=== PATIENT | male | born 1990 | race Caucasian/White ===

== ENCOUNTER 2020-06-15 20:44 | Emergency (ER) | payer OTHER ==
--- NOTE | 2020-06-15 21:05 | ED Physician Documentation ---
PD HPI ABD PAIN - Stated complaint Stated Complaint: ABX PX - Chief complaint Chief Complaint: Abd Pain - History obtained from History obtained from: Patient - History of Present Illness Timing - onset: How many weeks ago (2) Timing - duration: Weeks (2) Timing - details: Intermittant Pain level now: 8 Quality: Pain Location: RLQ Radiation: Other (epigastrium) Improved by: Other (nothing) Worsened by: Moving, Palpation Associated symptoms: No: Fever, Nausea, Vomiting, Diarrhea, Constipation, Chest pain Similar symptoms before: Has not had sx before Recently seen: Not recently seen Review of Systems Constitutional: denies: Fever, Chills, Sweats Cardiac: reports: Reviewed and negative Respiratory: reports: Reviewed and negative GI: reports: Abdominal Pain. denies: Abdominal Swelling, Nausea, Vomiting, C onstipation, Diarrhea : denies: Dysuria, Frequency, Hematuria Skin: denies: Rash Musculoskeletal: denies: Back pain PD PAST MEDICAL HISTORY - Past Medical History Past Medical History: No Cardiovascular: None Respiratory: None Neuro: None Endocrine/Autoimmune: None GI: None : None HEENT: None Psych: None Musculoskeletal: None Derm: None - Past Surgical History Past Surgical History: Yes Ortho: Other HEENT: Tonsil/Adenoidectomy - Present Medications Home Medications: Ambulatory Orders Medication Instructions Recorded Confirmed Ciprofloxacin HCl [Cipro] 500 mg PO BID #20 tablet 06/16/20 metroNIDAZOLE [Flagyl] 500 mg PO BID #20 tablet 06/16/20 - Allergies Allergies/Adverse Reactions: Allergies Allergy/AdvReac Type Severity Reaction Status Date / Time No Known Drug Allergies Allergy Verified 06/15/20 20:58 - Social History Does the pt smoke?: No Smoking Status: Never smoker Does the pt drink ETOH?: No Does the pt have substance abuse?: No - Immunizations Immunizations are current?: Yes - POLST Patient has POLST: No PD ED PE NORMAL - Vitals Vital signs reviewed: Yes - General General: Alert and oriented X 3, No acute distress, Well developed/nourished - Neck Neck: Supple, no meningeal sign - Cardiac Cardiac: RRR, No murmur, No gallop, No rub - Respiratory Respiratory: No respiratory distress, Clear bilaterally - Abdomen Abdomen: Soft, Non distended - Derm Derm: Normal color, Warm and dry PD ED PE EXPANDED - Abdomen Abdomen: Tender to palpation, RLQ. No: Rebound, Guarding, Mass (nontender right inguinal canal, no masses right inguinal canal including w/ valsalva) Results - Vitals Vitals: Vital Signs - 24 hr 06/15/20 06/15/20 06/15/20 20:56 21:05 22:30 Temperature 36.7 C Heart Rate 69 56 L Respiratory 16 16 16 Rate Blood Pressure 126/59 L 118/70 O2 Saturation 100 99 06/15/20 06/16/20 23:30 01:11 Temperature Heart Rate 58 L 63 Respiratory 16 18 Rate Blood Pressure 116/68 127/78 O2 Saturation 98 100 Oxygen O2 Source Room air - Labs Labs: Laboratory Tests 06/15/20 06/15/20 06/15/20 21:00 21:15 21:15 WBC 10.7 RBC 4.30 L Hgb 8.3 L Hct 28.6 L MCV 66.5 L MCH 19.3 L MCHC 29.0 L RDW 16.1 H Plt Count 420 MPV 9.5 Neut # (Auto) 7.7 H Lymph # (Auto) 2.1 [place] # (Auto) 0.6 Eos # (Auto) 0.2 Baso # (Auto) 0.1 Absolute Nucleated RBC 0.00 Nucleated RBC % 0.0 Manual Slide Review Indicated WBC Morphology NORMAL APPEARANCE Platelet Estimate NORMAL (130-450,000) Platelet Morphology NORMAL APPEARANCE RBC Morph Micro Appear 2+ MICROCYTOSIS Sodium 136 Potassium 3.6 Chloride 100 L Carbon Dioxide 26 Anion Gap 10.0 BUN 11 Creatinine 1.0 Estimated GFR (MDRD) 88 L Glucose 110 H Calcium 9.2 Total Bilirubin 0.8 AST 17 ALT 12 Alkaline Phosphatase 67 Total Protein 7.6 Albumin 3.7 Globulin 3.9 Albumin/Globulin Ratio 0.9 L Lipase 44 Urine Color YELLOW Urine Clarity CLEAR Urine pH 5.5 Ur Specific [place] <=1.005 Urine Protein NEGATIVE Urine Glucose (UA) NEGATIVE Urine Ketones NEGATIVE Urine Occult Blood NEGATIVE Urine Nitrite NEGATIVE Urine Bilirubin NEGATIVE Urine Urobilinogen 0.2 (NORMAL) Ur Leukocyte Esterase NEGATIVE Ur Microscopic Review NOT INDICATED Urine Culture Comments NOT INDICATED - Rads (name of study) CT A/P Radiology: Prelim report reviewed, See rad report PD MEDICAL DECISION MAKING - ED course Complexity details: reviewed results, re-evaluated patient, considered differential, d/w patient ED course: D/W Dr. Correa (center consultant surgery); recommends cipro and flagyl and outpatient f/u, as HPI and lab/CT results are most s/o IBD and not appendicitis. Patient has been tolerating PO without difficulty (albeit decreased appetite), is afebrile, has normal WBC, and declining pain medication. I then d/w Dr. Puga (GI at [facility]), agrees patient is appropriate for d/c, will need GI f/u. I discussed these recommendations with the patient and he is comfortable with this plan, will return if worse in any way and he reassures me that he will actively pursue follow up in outpatient setting. Departure - Departure Disposition: 01 Home, Self Care Clinical Impression: Ileitis, terminal Condition: Good Instructions: ED Inflam Bowel Disease Crohn Prescriptions: Ciprofloxacin HCl [Cipro] 500 mg PO BID #20 tablet metroNIDAZOLE [Flagyl] 500 mg PO BID #20 tablet Comments: AVOID anti-inflammatory medications (such as ibuprofen, naproxen). You need to follow up with a debubblizer as soon as can be arranged. Contact your primary care provider or insurance carrier to obtain a referral. Discharge Date/Time: 06/16/20 01:16
[2020-06-15 21:06] LABS: BILIRUBIN,URINE NEGATIVE (NEGATIVE); GLUCOSE, URINE (UA) NEGATIVE (NEGATIVE); KETONES,URINE (UA) NEGATIVE (NEGATIVE); LEUKOCYTE ESTERASE, URINE NEGATIVE (NEGATIVE); NITRITE,URINE NEGATIVE (NEGATIVE); OCCULT BLOOD,URINE NEGATIVE (NEGATIVE); PH,URINE 5.5 PH (5.0-7.5); PROTEIN,URINE NEGATIVE (NEGATIVE); UROBILINOGEN,URINE 0.2 (NORMAL) E.U./dL (NORMAL)
[2020-06-15 21:11] LABS: CLARITY,URINE CLEAR (CLEAR)
[2020-06-15 21:26] LABS: BASOPHILS # (AUTO) 0.1 10^3/uL (0.0-0.1); BASOPHILS % (AUTO) 0.5 %; EOSINOPHILS # (AUTO) 0.2 10^3/uL (0.0-0.7); EOSINOPHILS % (AUTO) 1.8 %; HGB - HEMOGLOBIN 8.3 g/dL (14.0-18.0); LYMPHOCYTES # (AUTO) 2.1 10^3/uL (1.5-3.5); LYMPHOCYTES % (AUTO) 19.6 %; MEAN CORPUSCULAR HEMOGLOBIN 19.3 pg (27.0-31.0); MEAN CORPUSCULAR VOLUME 66.5 fL (80.0-94.0); MEAN PLATELET VOLUME 9.5 fL (7.4-11.4); MONOCYTES # (AUTO) 0.6 10^3/uL (0.0-1.0); MONOCYTES % (AUTO) 5.6 %; NEUTROPHILS # (AUTO) 7.7 10^3/uL (1.5-6.6); NEUTROPHILS % (AUTO) 72.1 %; PLT - PLATELET COUNT 420 10^3/uL (130-450); RED CELL DISTRIBUTION WIDTH 16.1 % (12.0-15.0); WHITE BLOOD COUNT 10.7 x10^3/uL (4.8-10.8)
[2020-06-15] MEDS ORDERED: IOVERSOL 320 100 ML VIAL IVP ONE ×2 (21:30→22:07)
[2020-06-15 21:38] LABS: ALBUMIN 3.7 g/dL (3.2-5.5); ALBUMIN/GLOBULIN RATIO 0.9 (1.0-2.2); BILIRUBIN,TOTAL 0.8 mg/dL (0.2-1.0); CALCIUM 9.2 mg/dL (8.5-10.3); TOTAL PROTEIN 7.6 g/dL (6.7-8.2)
[2020-06-15 21:39] LABS: PLATELET ESTIMATE, MANUAL NORMAL (130-450,000) (NORMAL); PLATELET MORPHOLOGY NORMAL APPEARANCE (NORMAL)
[2020-06-16] MEDS ORDERED: CIPROFLOXACIN 250 MG TABLET PO STA (00:54)
[2020-06-16] MEDS ORDERED: metroNIDAZOLE 250 MG TABLET PO STA (00:54)
[2020-06-16 01:14] VITALS: BP 127/78
--- NOTE | 2020-06-16 08:51 | CT Report ---
PROCEDURE: Abdomen/Pelvis W INDICATIONS: RLQ pain, tenderness CONTRAST: IV CONTRAST: Optiray 320 ml: 100 PO CONTRAST: *NO PO CONTRAST TECHNIQUE: After the administration of oral and intravenous contrast, 5 mm thick sections acquired from the diap hragms to the symphysis. 5 mm thick coronal and sagittal reformats were acquired. For radiation dos e reduction, the following was used: automated exposure control, adjustment of mA and/or kV accordin g to patient size. COMPARISON: None. FINDINGS: Image quality: Excellent. ABDOMEN: Lung bases: Lung bases are clear. Heart size is normal. Solid organs: Liver and spleen are normal in size and enhancement. Gallbladder is within normal sadler its Biliary system is non dilated. Pancreas enhances normally. No adrenal nodules. Kidneys demons trate normal size and enhancement, without hydronephrosis. There is a nonobstructing 2 mm calculus w ithin the inferior pole right kidney anteriorly. Peritoneum and bowel: The stomach is within normal limits. Proximal and mid small bowel is nondistend ed. There is moderate dilatation of the distal ileum just proximal to the terminal ileum. There is se nayan thickening of the terminal ileum. There is moderate fat stranding surrounding the terminal ileum . The appendix is mildly distended measuring 8 mm, and is immediately posterior to the second termina l ileum. Colon is nondistended. Trace free fluid within the pelvis. No pneumoperitoneum. Nodes and vessels: No retroperitoneal or mesenteric adenopathy by size criteria. Mildly prominent suarez bcentimeter lymph nodes adjacent to the ileocecal junction. Aorta and inferior vena cava are normal in size. Miscellaneous: No ventral hernias. PELVIS: Genitourinary: Bladder wall thickness is normal. Miscellaneous: No inguinal hernias or adenopathy. Bones: No suspicious bony lesions. No vertebral body compression fractures. IMPRESSION: 1. Severe terminal ileitis. Differential considerations include inflammatory bowel disease versus inf ectious etiologies as most likely considerations. There is associated dilatation of the distal ileum. 2. Secondary appendicitis. 3. Nonobstructing right renal calculus. 4. Trace free fluid in the pelvis. 5. Concordant with preliminary interpretation. Reviewed by: Gaudencio St MD on 06/16/2020 8:49 AM PDT Approved by: Gaudencio St MD on 06/16/2020 8:49 AM PDT Station ID: [id number]
== END 2020-06-16 01:16 | disposition home or self-care (01) ==
LOC: ED 20:44
DX: K50.00 Crohn's disease of small intestine without complications (principal)
CPT/HCPCS: 36415; 74177; 80053; 81003; 83690; 85025; 99284; A9270; Q9967; 81001; 87086

== ENCOUNTER 2021-08-13 16:22 | Emergency (ER) | payer BC, OTHER ==
[2021-08-13] MEDS ORDERED: HYDROmorphone 1 MG/ML CARPUJECT IVP STA (16:57)
--- NOTE | 2021-08-13 16:58 | ED Physician Documentation ---
History of Present Illness - Stated complaint Stated Complaint: MALE - Chief complaint Chief Complaint: General - History obtained from History obtained from: Patient - Additonal information Additional information: 31-year-old gentleman with Crohn's disease and frequent hemorrhoids presents with 9 to 10 days of what he thinks is a hemorrhoidal flare. Unresponsive to [id number] remedies. No fevers. No recent diarrhea or blood in the stool. Review of Systems Ten Systems: 10 systems reviewed and negative Constitutional: reports: Reviewed and negative Eyes: reports: Reviewed and negative Ears: reports: Reviewed and negative PD PAST MEDICAL HISTORY - Past Medical History Cardiovascular: None Respiratory: None Neuro: None Endocrine/Autoimmune: None GI: None : None HEENT: None Psych: None Musculoskeletal: None Derm: None - Past Surgical History Past Surgical History: Yes Ortho: Other HEENT: Tonsil/Adenoidectomy - Present Medications Home Medications: Ambulatory Orders Medication Instructions Recorded Confirmed Amox/Clav 875/125 [Augmentin] 1 each PO Q12H #20 tablet 08/13/21 HYDROcod/ACETAM 5/325 [[place] 5/325] 1 - 2 tab PO Q6H PRN #15 tablet 08/13/21 - Allergies Allergies/Adverse Reactions: Allergies Allergy/AdvReac Type Severity Reaction Status Date / Time No Known Drug Allergies Allergy Verified 08/13/21 16:26 - Social History Does the pt smoke?: No Smoking Status: Never smoker Does the pt drink ETOH?: No Does the pt have substance abuse?: No - Immunizations Immunizations are current?: Yes - POLST Patient has POLST: No PD ED PE NORMAL - Vitals Vital signs reviewed: Yes - General General: Alert and oriented X 3 - Abdomen Abdomen: Normal bowel sounds, Soft, Non tender - Rectal Rectal: Other (He does have some hemorrhoids on the right but under there is a very large perirectal abscess) - Neuro Neuro: Alert and oriented X 3, Normal speech Results - Vitals Vitals: Vital Signs - 24 hr 08/13/21 08/13/21 08/13/21 16:27 17:35 17:36 Temperature 37.2 C Heart Rate 98 77 75 Respiratory 18 16 16 Rate Blood Pressure 141/82 H 118/71 O2 Saturation 97 98 08/13/21 08/13/21 08/13/21 17:38 17:40 17:43 Temperature Heart Rate 75 62 75 Respiratory 22 26 H 24 Rate Blood Pressure 126/91 H 110/80 O2 Saturation 100 100 100 08/13/21 08/13/21 17:53 17:58 Temperature Heart Rate 70 68 Respiratory 18 11 L Rate Blood Pressure 122/67 117/65 O2 Saturation 99 98 Oxygen O2 Source Room air - Labs Labs: Laboratory Tests 08/13/21 08/13/21 17:05 17:05 WBC 12.2 H RBC 5.10 Hgb 9.8 L Hct 35.0 L MCV 68.6 L MCH 19.2 L MCHC 28.0 L RDW 15.9 H Plt Count 383 MPV 9.8 Manual Slide Review Indicated Sodium 138 Potassium 3.9 Chloride 98 L Carbon Dioxide 27 Anion Gap 13.0 BUN 19 Creatinine 0.8 Estimated GFR (MDRD) 114 Glucose 112 H Calcium 9.3 Total Bilirubin 0.9 AST 14 ALT 11 Alkaline Phosphatase 72 Total Protein 8.2 Albumin 4.0 Globulin 4.2 Albumin/Globulin Ratio 1.0 Lipase 31 Procedures - Procedural sedation Sedation prep: Informed consent, Time out completed, Last meal (12p), PE performed, ASA 2 - mild disease Sedation Medications: propofol (70 then 40 then 40 mg IVP) Mallampati classification: I Patient status during sedation: Responds to tactile Sedation recovery: Recovered uneventfully, Slow recovery Time in sedation (Minutes): 12 PD MEDICAL DECISION MAKING - ED course ED course: 31-year-old gentleman with history of Crohn's presents with large perirectal abscess. Dr. Correa came in and saw the patient at the bedside. I sedated the patient for a incision and drainage that the surgeon performed of the rectal abscess, see his note. Departure - Departure Disposition: 01 Home, Self Care Clinical Impression: Rectal abscess Condition: Good Record reviewed to determine appropriate education?: Yes Instructions: ED Fistula Angelika Anal Follow-Up: Humphrey Correa MD [Provider Admit Priv/Credential] - Prescriptions: Amox/Clav 875/125 [Augmentin] 1 each PO Q12H #20 tablet HYDROcod/ACETAM 5/325 [[place] 5/325] 1 - 2 tab PO Q6H PRN #15 tablet PRN Reason: Pain Comments: Prescription sent electronically to [facility] in [place]. You can soak it tomorrow and then remove the packing. After that you will want to keep some absorbent material inside of your underpants as there will be drainage. Return if worsening. Otherwise to follow-up with the surgeon in 2 weeks, call his office tomorrow. His numbers on this form. I am prescribing a short course of narcotic pain medication for you. These are potentially dangerous and addictive medications that should be used carefully. These medications may constipate you. Take an hovb-pob-xsqbxga stool softener (docusate) twice daily with plenty of water while taking these medications. If you go 24 hours without a bowel movement, take uyfg-tjk-kebricx miralax, per package instructions. Do not drink or drive while taking these medications. If you received narcotic or sedating medications while in the emergency department, do not drive for 24 hours. Store this medication in a safe, secure place and out of reach of children. It is a violation of federal law to give or sell this medication to another person or to use in a manner other than prescribed. The ED will not refill narcotic prescriptions, including prescriptions lost or stolen. To dispose of unwanted medications: 1. [facility] at [address] in [place] has a medication drop box. They accept prescription medications (in pill form) Thursday through Thursday 9:00 a.m. to 5:00 p.m. 2. [facility] [employer] accepts prescription medications (in pill form only) for disposal year round. Call for more information. 3. Contact the [facility] for the next [facility] sponsored prescription drug collection event. , [phone], or [phone]; Note that many narcotic pain relievers also contain Tylenol/acetaminophen. Please ensure that your total dose of acetaminophen from all sources does not exceed 3 g (3000 mg) per day.
[2021-08-13 17:09] LABS: BASOPHILS % (AUTO) 0.3 %; EOSINOPHILS % (AUTO) 0.3 %; HGB - HEMOGLOBIN 9.8 g/dL (14.0-18.0); LYMPHOCYTES # (AUTO) 1.1 10^3/uL (1.5-3.5); LYMPHOCYTES % (AUTO) 8.7 %; MEAN CORPUSCULAR HEMOGLOBIN 19.2 pg (27.0-31.0); MEAN CORPUSCULAR VOLUME 68.6 fL (80.0-94.0); MEAN PLATELET VOLUME 9.8 fL (7.4-11.4); MONOCYTES # (AUTO) 0.7 10^3/uL (0.0-1.0); MONOCYTES % (AUTO) 5.8 %; NEUTROPHILS # (AUTO) 10.3 10^3/uL (1.5-6.6); NEUTROPHILS % (AUTO) 84.6 %; PLT - PLATELET COUNT 383 10^3/uL (130-450); RED CELL DISTRIBUTION WIDTH 15.9 % (12.0-15.0); WHITE BLOOD COUNT 12.2 x10^3/uL (4.8-10.8)
[2021-08-13 17:10] LABS: SLIDE REVIEW? Indicated
[2021-08-13 17:22] LABS: BILIRUBIN,TOTAL 0.9 mg/dL (0.2-1.0); CALCIUM 9.3 mg/dL (8.5-10.3); CREATININE 0.8 mg/dL (0.6-1.2); POTASSIUM 3.9 mmol/L (3.5-5.0); TOTAL PROTEIN 8.2 g/dL (6.7-8.2)
[2021-08-13] MEDS ORDERED: PROPOFOL 200 MG/20 ML VIAL IVP STA ×2 (17:24→17:44)
[2021-08-13] MEDS ORDERED: LIDOCAINE 1%-EPI 1:100000 20 ML MDV SUBQ STA (17:24)
[2021-08-13] MEDS ORDERED: BUPIVACAINE 0.5%-EPI 1:200000 PF 30 ML VIAL SUBQ ONE (17:24)
[2021-08-13] MEDS ORDERED: BUPIVACAINE 0.25% PF 30 ML VIAL ONE (17:34)
--- NOTE | 2021-08-13 17:49 | CONSULTATION NOTE ---
Referring Provider Consult Date: 08/13/21 Chief Complaint - Chief Complaint Chief Complaint: perianal pain x 10 days History of Present Illness - History Obtained From Records Reviewed: yes History obtained from: pt Exam Limitations: none - History of Present Illness HPI Comment/Other: 31 year old with history of crohns and hemorrhoid type problems. For the last 10 days he thought he was having more hemorrhoid troubles with pain. He was seen and evaluated in the ED. Dx perianal abscess. History - Past Medical History Cardiovascular: reports: None Respiratory: reports: None Neuro: reports: None Endocrine/Autoimmune: reports: None GI: reports: None : reports: None HEENT: reports: None Psych: reports: None Musculoskeletal: reports: None Derm: reports: None MRSA Hx?: No Other Past Medical History: Hx hemrroids - Past Surgical History Ortho: reports: Other HEENT: reports: Tonsil/Adenoidectomy - POLST Patient has POLST: No Meds/Allgy - Home Medications Home Medications: Ambulatory Orders Medication Instructions Recorded Confirmed Amox/Clav 875/125 [Augmentin] 1 each PO Q12H #20 tablet 08/13/21 HYDROcod/ACETAM 5/325 [[place] 5/325] 1 - 2 tab PO Q6H PRN #15 tablet 08/13/21 - Allergies Allergies/Adverse Reactions: Allergies Allergy/AdvReac Type Severity Reaction Status Date / Time No Known Drug Allergies Allergy Verified 08/13/21 16:26 Review of Systems - Constitutional Constitutional: reports: Fever, Malaise (10 pt ros as above otherwise unremarkable) Exam - Vital Signs Reviewed Vital Signs: Yes Vital Signs: Vital Signs x48h Temp Pulse Resp BP Pulse Ox 08/13/21 17:43 75 24 110/80 100 08/13/21 17:40 62 26 H 126/91 H 100 08/13/21 17:38 75 22 100 08/13/21 17:36 75 16 118/71 98 08/13/21 16:27 37.2 C 98 18 141/82 H 97 - Physical Exam General Appearance: positive: No acute distress, Alert Eyes Bilateral: positive: PERRL, EOMI, No scleral icterus ENT: positive: No signs of dehydration Neck: positive: No JVD Respiratory: positive: No respiratory distress Abdomen: positive: Non-tender, No distention, Other (thin) Rectal: positive: Other (10:00 3 to 4 cm perianal abscess with minimal to no cellulitis and induration. perianal skin tags present. no prolapsed internal hemorrhoids or significant external hemorrhoids.) Conclusion/Plan - Problem List (1) Rectal abscess Conclusion/Plan: Plan I and D perianal abscess. Parq held and verbal consent obtained. I and D performed. well tolerated. Follow up in surgery office in 2 weeks and prn Remove dressing tomorrow and change as needed [phone] - Lab Results Fish Bones: 08/13/21 17:05 08/13/21 17:05
--- NOTE | 2021-08-13 17:56 | OPERATIVE REPORT ---
Operative Report - General Procedure Date: 08/13/21 Planned Procedure: I and D perianal abscess Pre-Op Diagnosis: perianal abscess Procedure Performed: I and D perianal abscess Post Op Diagnosis: perianal abscess 10:00 - Procedure Note Primary Surgeon: adri najera Anesthesia Provider: Dr roel BOOKER Anesthesia Technique: Local, MAC Pathology: none Estimated Blood Loss (mL): 1 Drain/Tube Type: Other (none) Indications: painful perianal abscess Findings: 3 to 4 cm abscess with minimal cellulitis. no induration Complications: none - Other Other Information/Narrative: The patient was properly identified in the emergency department room. Procedure of incision and drainage of perianal abscess was explained. Alternatives and risks were discussed. All questions answered. Verbal consent was obtained for incision and drainage of abscess. Anesthesia was administered by Dr. Ward, emergency department Betadine was used. Lidocaine and Marcaine with epinephrine was used. A 2 cm incision was made completely draining the abscess. He tolerated the procedure well. Loose packing followed by dry gauze was placed. He was much improved and in good condition.
[2021-08-13] MEDS ORDERED: BUPIVACAINE 0.25% PF 30 ML VIAL SUBQ STA (18:03)
[2021-08-13 18:05] LABS: PLATELET ESTIMATE, MANUAL NORMAL (130-450,000) (NORMAL); PLATELET MORPHOLOGY NORMAL APPEARANCE (NORMAL)
[2021-08-13 18:38] VITALS: BP 117/76
== END 2021-08-13 18:43 | disposition home or self-care (01) ==
LOC: ED 16:22
DX: K50.914 Crohn's disease, unspecified, with abscess (principal)
CPT/HCPCS: 36415; 46050; 80053; 83690; 85025; 96374; 99156; 99283; 99285; J1170; 94770

== ENCOUNTER 2021-08-18 09:58 | Emergency (ER) | payer BC ==
[2021-08-18 11:27] LABS: BASOPHILS % (AUTO) 0.5 %; EOSINOPHILS # (AUTO) 0.1 10^3/uL (0.0-0.7); EOSINOPHILS % (AUTO) 1.3 %; HCT - HEMATOCRIT 35.2 % (42.0-52.0); HGB - HEMOGLOBIN 9.8 g/dL (14.0-18.0); LYMPHOCYTES # (AUTO) 0.9 10^3/uL (1.5-3.5); LYMPHOCYTES % (AUTO) 11.4 %; MEAN CORPUSCULAR HEMOGLOBIN 19.4 pg (27.0-31.0); MEAN CORPUSCULAR HGB CONC 27.8 g/dL (32.0-36.0); MEAN CORPUSCULAR VOLUME 69.8 fL (80.0-94.0); MEAN PLATELET VOLUME 9.8 fL (7.4-11.4); MONOCYTES # (AUTO) 0.3 10^3/uL (0.0-1.0); MONOCYTES % (AUTO) 4.1 %; NEUTROPHILS # (AUTO) 6.5 10^3/uL (1.5-6.6); NEUTROPHILS % (AUTO) 82.6 %; PLT - PLATELET COUNT 394 10^3/uL (130-450); RED BLOOD COUNT 5.04 10^6/uL (4.70-6.10); RED CELL DISTRIBUTION WIDTH 16.1 % (12.0-15.0); WHITE BLOOD COUNT 7.8 x10^3/uL (4.8-10.8)
[2021-08-18 11:29] LABS: SLIDE REVIEW? Indicated
[2021-08-18 11:41] LABS: ALBUMIN 3.7 g/dL (3.2-5.5); BILIRUBIN,TOTAL 0.3 mg/dL (0.2-1.0); CALCIUM 9.2 mg/dL (8.5-10.3); CREATININE 0.7 mg/dL (0.6-1.2); TOTAL PROTEIN 7.4 g/dL (6.7-8.2)
[2021-08-18 11:44] LABS: GLUCOSE, URINE (UA) NEGATIVE (NEGATIVE); KETONES,URINE (UA) TRACE mg/dL (NEGATIVE); LEUKOCYTE ESTERASE, URINE NEGATIVE (NEGATIVE); NITRITE,URINE NEGATIVE (NEGATIVE); OCCULT BLOOD,URINE NEGATIVE (NEGATIVE); PROTEIN,URINE NEGATIVE (NEGATIVE); UROBILINOGEN,URINE 0.2 (NORMAL) E.U./dL (NORMAL)
[2021-08-18 11:49] LABS: RBC MORPHOLOGY (MULTIPLE) 2+ MICROCYTOSIS (NORMAL)
[2021-08-18 11:51] LABS: CLARITY,URINE CLEAR (CLEAR)
[2021-08-18 11:55] LABS: BILIRUBIN,URINE NEGATIVE (NEGATIVE); ICTOTEST,URINE NEGATIVE
--- NOTE | 2021-08-18 11:59 | ED Physician Documentation ---
PD HPI ABD PAIN - Stated complaint Stated Complaint: BLOOD IN URINE - Chief complaint Chief Complaint: Abd Pain - History obtained from History obtained from: Patient - Additional information Additional information: 31-year-old gentleman with Crohn's disease was seen by me about a week ago for a perirectal abscess which was incised and drained by the surgeon. He is back on his Pentasa. He continues to have weight loss and drainage from the abscess but today noted light pink hematuria and suprapubic discomfort. No frequency or urgency. Review of Systems Constitutional: reports: Reviewed and negative Eyes: reports: Reviewed and negative Ears: reports: Reviewed and negative Nose: reports: Reviewed and negative Throat: reports: Reviewed and negative Cardiac: reports: Reviewed and negative Respiratory: reports: Reviewed and negative PD PAST MEDICAL HISTORY - Past Medical History Cardiovascular: None Respiratory: None Neuro: None Endocrine/Autoimmune: None GI: Crohn's disease : None HEENT: None Psych: None Musculoskeletal: None Derm: None Other Past Medical History: Rectal abscess, anal fissure - Past Surgical History Past Surgical History: Yes Ortho: Other HEENT: Tonsil/Adenoidectomy - Present Medications Home Medications: Ambulatory Orders Medication Instructions Recorded Confirmed Amox/Clav 875/125 [Augmentin] 1 each PO Q12H #20 tablet 08/13/21 HYDROcod/ACETAM 5/325 [[place] 5/325] 1 - 2 tab PO Q6H PRN #15 tablet 08/13/21 - Allergies Allergies/Adverse Reactions: Allergies Allergy/AdvReac Type Severity Reaction Status Date / Time No Known Drug Allergies Allergy Verified 08/18/21 10:22 - Social History Does the pt smoke?: No Smoking Status: Never smoker Does the pt drink ETOH?: No Does the pt have substance abuse?: No - Immunizations Immunizations are current?: Yes - POLST Patient has POLST: No PD ED PE NORMAL - Vitals Vital signs reviewed: Yes - General General: Alert and oriented X 3, No acute distress - HEENT HEENT: PERRL, EOMI - Neck Neck: Supple, no meningeal sign, No bony TTP - Cardiac Cardiac: RRR, No murmur - Respiratory Respiratory: No respiratory distress, Clear bilaterally - Abdomen Abdomen: Normal bowel sounds, Soft, Non tender - Rectal Rectal: Other (Actively draining abscess with still open tract on the right gluteal crease without cellulitis now.) - Back Back: No CVA TTP, No spinal TTP - Derm Derm: Normal color, Warm and dry - Extremities Extremities: No edema, No calf tenderness / cord - Neuro Neuro: Alert and oriented X 3, Normal speech Results - Vitals Vitals: Vital Signs - 24 hr 08/18/21 08/18/21 10:19 12:45 Temperature 36.1 C L 36.4 C L Heart Rate 126 H 59 L Respiratory 16 16 Rate Blood Pressure 116/84 H 122/81 H O2 Saturation 100 100 Oxygen O2 Source Room air - Labs Labs: Laboratory Tests 08/18/21 08/18/21 08/18/21 10:26 11:20 11:20 WBC 7.8 RBC 5.04 Hgb 9.8 L Hct 35.2 L MCV 69.8 L MCH 19.4 L MCHC 27.8 L RDW 16.1 H Plt Count 394 MPV 9.8 Neut # (Auto) 6.5 Lymph # (Auto) 0.9 L [place] # (Auto) 0.3 Eos # (Auto) 0.1 Baso # (Auto) 0.0 Absolute Nucleated RBC 0.00 Nucleated RBC % 0.0 Manual Slide Review Indicated RBC Morph Micro Appear 2+ MICROCYTOSIS Sodium 138 Potassium 4.0 Chloride 101 Carbon Dioxide 27 Anion Gap 10.0 BUN 12 Creatinine 0.7 Estimated GFR (MDRD) 132 Glucose 102 H Calcium 9.2 Total Bilirubin 0.3 AST 26 ALT 20 Alkaline Phosphatase 60 Total Protein 7.4 Albumin 3.7 Globulin 3.7 Albumin/Globulin Ratio 1.0 Lipase 36 Urine Color DARK YELLOW Urine Clarity CLEAR Urine pH 5.0 Ur Specific [place] 1.025 Urine Protein NEGATIVE Urine Glucose (UA) NEGATIVE Urine Ketones TRACE Urine Occult Blood NEGATIVE Urine Nitrite NEGATIVE Urine Bilirubin NEGATIVE Urine Urobilinogen 0.2 (NORMAL) Ur Leukocyte Esterase NEGATIVE Ur Microscopic Review NOT INDICATED Urine Culture Comments NOT INDICATED PD MEDICAL DECISION MAKING - ED course ED course: 31-year-old gentleman presents with chief complaints of visible hematuria in the setting of active Crohn's disease. He has an appoint with his GI tomorrow but does not appear in extremis and has no other urinary symptoms. After his urine was resulted without any evidence of hematuria further questioning was done culminating in the discovery that his had made him a beet smoothie yesterday which was probably causative of his acute symptomatology. I offered to go ahead and do the CT with double contrast that I had previously ordered anyway and he declined. He has an appoint with his GI tomorrow which she will keep. Departure - Departure Disposition: 01 Home, Self Care Clinical Impression: Red urine due to beet ingestion Acute Crohn's disease Qualifiers: Digestive disease complication type: unspecified complication Qualified Code(s): K50.919 - Crohn's disease, unspecified, with unspecified complications Condition: Good Record reviewed to determine appropriate education?: Yes Instructions: ED Inflam Bowel Disease Crohn Comments: Follow-up with your GI tomorrow as scheduled. Return for new or worsening symptoms. Discharge Date/Time: 08/18/21 12:46
[2021-08-18] MEDS ORDERED: IOPAMIDOL-300 100 ML VIAL ONE (12:05)
[2021-08-18] MEDS ORDERED: IOVERSOL 320 50 ML VIAL ONE (12:06)
[2021-08-18 12:45] VITALS: BP 122/81
== END 2021-08-18 12:46 | disposition home or self-care (01) ==
LOC: ED 09:58
DX: K50.90 Crohn's disease, unspecified, without complications (principal)
CPT/HCPCS: 36415; 80053; 81001; 81003; 83690; 85025; 87086; 99283

== ENCOUNTER 2021-10-28 11:46 | Outpatient (CLI) | payer BC ==
[2021-10-28] MEDS ORDERED: IOVERSOL 320 50 ML VIAL ONE (11:56)
[2021-10-28] MEDS ORDERED: IOVERSOL 320 100 ML VIAL IVP ONE ×2 (11:56→13:12)
[2021-10-28] MEDS ORDERED: IOVERSOL 320 50 ML VIAL PO ONE (13:12)
--- NOTE | 2021-10-28 16:10 | CT Report ---
PROCEDURE: Abdomen/Pelvis W INDICATIONS: CROHN'S DISEASE CONTRAST: IV CONTRAST: Optiray 320 ml: 100 PO CONTRAST: Optiray 320 ml50 TECHNIQUE: After the administration of IV and oral contrast, 5 mm thick sections acquired from the diaphragms to the symphysis. 5 mm thick coronal and sagittal reformats were acquired. For radiation dose reducti on, the following was used: automated exposure control, adjustment of mA and/or kV according to quintin ent size. COMPARISON: 06/15/2020. FINDINGS: Image quality: Excellent. ABDOMEN: Lung bases: Lung bases are clear. Heart size is normal. Solid organs: Liver is normal in size and enhancement. Splenomegaly is seen, no discrete splenic les ion is noted. Gallbladder is within normal limits. Biliary system is non dilated. Pancreas enhances normally. No adrenal nodules. Kidneys demonstrate normal size and enhancement, without hydronephro sis. Nonobstructing right renal calculus is again seen and unchanged from prior study. Peritoneum and bowel: There is no evidence of bowel obstruction. Marked wall thickening involving ter mariano ileum in right lower quadrant is seen with narrowing of the lumen and adjacent mesenteric fat s tranding. No other area of abnormal bowel wall thickening. No abscess collection. No free fluid of fr ee air. Nodes and vessels: No retroperitoneal or mesenteric adenopathy by size criteria. Small right lower q uadrant mesenteric lymph nodes are seen adjacent inflamed terminal ileum and ileocecal junction measu res up to 4 mm in short axis diameter series 3 image 55. Aorta and inferior vena cava are normal in s ize. Miscellaneous: No ventral hernias. PELVIS: Genitourinary: Bladder wall thickness is normal. Miscellaneous: No inguinal hernias or adenopathy. Bones: No suspicious bony lesions. No vertebral body compression fractures. IMPRESSION: 1. Severe terminal ileitis likely related to patient's known Crohn's disease. No abscess collection. No bowel obstruction. No free fluid of free air. 2. Subcentimeter lymph nodes seen in right lower quadrant mesentery likely represent reactive inflamm atory lymph nodes. 3. Stable tiny nonobstructing right renal calculi. No hydronephrosis. 4. Splenomegaly, no discrete splenic lesion. Reviewed by: Alexander Torres MD on 10/28/2021 4:09 PM PST Approved by: Alexander Torres MD on 10/28/2021 4:09 PM PST Station ID: [id number]
== END 2021-10-28 11:47 | disposition home or self-care (01) ==
LOC: DI 11:46
PROVIDERS: ATTEND Nurse Practitioner Family
DX: K50.90 Crohn's disease, unspecified, without complications (principal); K52.9 Noninfective gastroenteritis and colitis, unspecified; N20.0 Calculus of kidney; R16.1 Splenomegaly, not elsewhere classified
CPT/HCPCS: 74177; Q9967

== ENCOUNTER 2021-12-27 09:31 | Outpatient (CLI) | payer OTHER ==
[2021-12-27 09:44] LABS: BASOPHILS % (AUTO) 0.4 %; EOSINOPHILS # (AUTO) 0.1 10^3/uL (0.0-0.7); EOSINOPHILS % (AUTO) 1.5 %; HCT - HEMATOCRIT 41.5 % (42.0-52.0); HGB - HEMOGLOBIN 12.9 g/dL (14.0-18.0); LYMPHOCYTES # (AUTO) 1.7 10^3/uL (1.5-3.5); LYMPHOCYTES % (AUTO) 24.8 %; MEAN CORPUSCULAR HEMOGLOBIN 25.8 pg (27.0-31.0); MEAN CORPUSCULAR HGB CONC 31.1 g/dL (32.0-36.0); MEAN PLATELET VOLUME 10.6 fL (7.4-11.4); MONOCYTES # (AUTO) 0.5 10^3/uL (0.0-1.0); MONOCYTES % (AUTO) 6.7 %; NEUTROPHILS # (AUTO) 4.5 10^3/uL (1.5-6.6); NEUTROPHILS % (AUTO) 66.5 %; PLT - PLATELET COUNT 230 10^3/uL (130-450); RED CELL DISTRIBUTION WIDTH 15.9 % (12.0-15.0); WHITE BLOOD COUNT 6.8 x10^3/uL (4.8-10.8)
== END 2021-12-27 09:32 | disposition home or self-care (01) ==
LOC: LAB 09:31
PROVIDERS: ATTEND Internal Medicine Gastroenterology
DX: K50.013 Crohn's disease of small intestine with fistula (principal)
CPT/HCPCS: 36415; 85025

== ENCOUNTER 2022-01-03 09:42 | Outpatient (CLI) | payer OTHER ==
[2022-01-03 09:58] LABS: BASOPHILS % (AUTO) 0.3 %; EOSINOPHILS # (AUTO) 0.1 10^3/uL (0.0-0.7); EOSINOPHILS % (AUTO) 1.1 %; HCT - HEMATOCRIT 41.1 % (42.0-52.0); HGB - HEMOGLOBIN 12.9 g/dL (14.0-18.0); LYMPHOCYTES # (AUTO) 1.8 10^3/uL (1.5-3.5); LYMPHOCYTES % (AUTO) 19.4 %; MEAN CORPUSCULAR HEMOGLOBIN 26.4 pg (27.0-31.0); MEAN CORPUSCULAR HGB CONC 31.4 g/dL (32.0-36.0); MEAN CORPUSCULAR VOLUME 84.2 fL (80.0-94.0); MEAN PLATELET VOLUME 10.7 fL (7.4-11.4); MONOCYTES # (AUTO) 0.5 10^3/uL (0.0-1.0); MONOCYTES % (AUTO) 5.5 %; NEUTROPHILS # (AUTO) 6.7 10^3/uL (1.5-6.6); NEUTROPHILS % (AUTO) 73.5 %; PLT - PLATELET COUNT 247 10^3/uL (130-450); RED BLOOD COUNT 4.88 10^6/uL (4.70-6.10); RED CELL DISTRIBUTION WIDTH 15.9 % (12.0-15.0); WHITE BLOOD COUNT 9.1 x10^3/uL (4.8-10.8)
== END 2022-01-03 09:43 | disposition home or self-care (01) ==
LOC: LAB 09:42
PROVIDERS: ATTEND Internal Medicine Gastroenterology
DX: K50.013 Crohn's disease of small intestine with fistula (principal)
CPT/HCPCS: 36415; 85025

== ENCOUNTER 2022-01-10 09:46 | Outpatient (CLI) | payer OTHER ==
[2022-01-10 10:01] LABS: BASOPHILS % (AUTO) 0.4 %; EOSINOPHILS # (AUTO) 0.1 10^3/uL (0.0-0.7); EOSINOPHILS % (AUTO) 1.7 %; HCT - HEMATOCRIT 40.7 % (42.0-52.0); LYMPHOCYTES # (AUTO) 1.7 10^3/uL (1.5-3.5); LYMPHOCYTES % (AUTO) 20.9 %; MEAN CORPUSCULAR HEMOGLOBIN 26.7 pg (27.0-31.0); MEAN CORPUSCULAR HGB CONC 31.9 g/dL (32.0-36.0); MEAN CORPUSCULAR VOLUME 83.6 fL (80.0-94.0); MEAN PLATELET VOLUME 10.3 fL (7.4-11.4); MONOCYTES # (AUTO) 0.6 10^3/uL (0.0-1.0); MONOCYTES % (AUTO) 7.3 %; NEUTROPHILS # (AUTO) 5.6 10^3/uL (1.5-6.6); NEUTROPHILS % (AUTO) 69.3 %; PLT - PLATELET COUNT 252 10^3/uL (130-450); RED BLOOD COUNT 4.87 10^6/uL (4.70-6.10); RED CELL DISTRIBUTION WIDTH 15.9 % (12.0-15.0); WHITE BLOOD COUNT 8.1 x10^3/uL (4.8-10.8)
== END 2022-01-10 09:47 | disposition home or self-care (01) ==
LOC: LAB 09:46
PROVIDERS: ATTEND Internal Medicine Gastroenterology
DX: K50.013 Crohn's disease of small intestine with fistula (principal)
CPT/HCPCS: 36415; 85025

== ENCOUNTER 2022-01-20 07:42 | Outpatient (CLI) | payer OTHER ==
[2022-01-20 07:55] LABS: BASOPHILS % (AUTO) 0.5 %; EOSINOPHILS # (AUTO) 0.2 10^3/uL (0.0-0.7); EOSINOPHILS % (AUTO) 2.6 %; HCT - HEMATOCRIT 41.3 % (42.0-52.0); HGB - HEMOGLOBIN 13.1 g/dL (14.0-18.0); LYMPHOCYTES % (AUTO) 34.3 %; MEAN CORPUSCULAR HEMOGLOBIN 27.1 pg (27.0-31.0); MEAN CORPUSCULAR HGB CONC 31.7 g/dL (32.0-36.0); MEAN CORPUSCULAR VOLUME 85.5 fL (80.0-94.0); MEAN PLATELET VOLUME 10.4 fL (7.4-11.4); MONOCYTES # (AUTO) 0.4 10^3/uL (0.0-1.0); MONOCYTES % (AUTO) 6.5 %; NEUTROPHILS # (AUTO) 3.3 10^3/uL (1.5-6.6); NEUTROPHILS % (AUTO) 55.8 %; PLT - PLATELET COUNT 229 10^3/uL (130-450); RED BLOOD COUNT 4.83 10^6/uL (4.70-6.10); RED CELL DISTRIBUTION WIDTH 15.9 % (12.0-15.0); WHITE BLOOD COUNT 5.9 x10^3/uL (4.8-10.8)
== END 2022-01-20 07:43 | disposition home or self-care (01) ==
LOC: LAB 07:42
PROVIDERS: ATTEND Internal Medicine Gastroenterology
DX: K50.013 Crohn's disease of small intestine with fistula (principal)
CPT/HCPCS: 36415; 85025

== ENCOUNTER 2022-01-27 12:51 | Outpatient (CLI) | payer OTHER | END 2022-01-27 12:52 | disposition home or self-care (01) | LOC: NS 12:51 | PROVIDERS: ATTEND Internal Medicine | DX: K50.90 Crohn's disease, unspecified, without complications (principal); R63.4 Abnormal weight loss; Z71.3 Dietary counseling and surveillance; Z68.20 Body mass index [BMI] 20.0-20.9, adult | CPT/HCPCS: 97802 ==

== ENCOUNTER 2022-05-21 20:32 | Emergency (ER) | payer OTHER ==
--- NOTE | 2022-05-21 20:58 | ED Physician Documentation ---
PD HPI CHEST PAIN - Stated complaint Stated Complaint: CHEST PAIN - Chief complaint Chief Complaint: Cardiac - History obtained from History obtained from: Patient - History of Present Illness Timing - onset: How many hours ago (4.5) Timing - details: Abrupt onset Pain level now: 7 Quality: Pain Location: Left chest Radiation: Left upper extremity Improved by: Nothing Worsened by: Other (no ameliorating factors) Associated symptoms: Nausea (resolved), Vomiting (resolved). No: Shortness of air, Diaphoresis, Feeling faint / dizzy, General Weakness, Palpitations, Cough Similar symptoms before: Has not had sx before Recently seen: Not recently seen - Additional information Additional information: c/o rapid onset left chest pain radiating down LUE approximately 4.5 hours [employer] while at home at rest. Has not had these symptoms before. Pain was associated with nausea and vomiting but n/v resolved [employer] Review of Systems Constitutional: reports: Reviewed and negative Cardiac: reports: Chest pain / pressure. denies: Palpitations, Pedal edema, Calf pain Respiratory: reports: Reviewed and negative GI: reports: Nausea, Vomiting. denies: Abdominal Pain, Constipation, Diarrhea Musculoskeletal: denies: Extremity swelling PD PAST MEDICAL HISTORY - Past Medical History Cardiovascular: None Respiratory: None Neuro: None Endocrine/Autoimmune: None GI: Crohn's disease : None HEENT: None Psych: None Musculoskeletal: None Derm: None - Past Surgical History Past Surgical History: Yes Ortho: Other HEENT: Tonsil/Adenoidectomy - Present Medications Home Medications: Ambulatory Orders Medication Instructions Recorded Confirmed Amox/Clav 875/125 [Augmentin] 1 each PO Q12H #20 tablet 08/13/21 HYDROcod/ACETAM 5/325 [[place] 5/325] 1 - 2 tab PO Q6H PRN #15 tablet 08/13/21 - Allergies Allergies/Adverse Reactions: Allergies Allergy/AdvReac Type Severity Reaction Status Date / Time No Known Drug Allergies Allergy Verified 05/21/22 20:42 - Social History Does the pt smoke?: No Smoking Status: Never smoker Does the pt drink ETOH?: No Does the pt have substance abuse?: No - Immunizations Immunizations are current?: Yes - POLST Patient has POLST: No PD ED PE NORMAL - Vitals Vital signs reviewed: Yes - General General: Alert and oriented X 3, No acute distress, Well developed/nourished - Cardiac Cardiac: RRR, No murmur, No gallop, No rub - Respiratory Respiratory: No respiratory distress, Clear bilaterally - Abdomen Abdomen: Soft, Non tender - Derm Derm: Normal color, Warm and dry - Extremities Extremities: No edema Results - Vitals Vitals: Oxygen O2 Source Room air - EKG (time done) No standard instances Rate: Rate (enter#) (85) Rhythm: NSR Cannon: Normal Intervals: Normal [place] QRS: Normal Ischemia: Normal ST segments - Labs Labs: Laboratory Tests 05/21/22 05/21/22 05/21/22 20:55 20:55 20:55 WBC 6.6 RBC 4.78 Hgb 14.4 Hct 43.6 MCV 91.2 MCH 30.1 MCHC 33.0 RDW 11.9 L Plt Count 247 MPV 10.1 Neut # (Auto) 3.0 Lymph # (Auto) 3.1 [place] # (Auto) 0.4 Eos # (Auto) 0.1 Baso # (Auto) 0.0 Absolute Nucleated RBC 0.00 Nucleated RBC % 0.0 Sodium 140 Potassium 3.6 Chloride 103 Carbon Dioxide 28 Anion Gap 9.0 BUN 13 Creatinine 1.1 Estimated GFR (MDRD) 78 L Glucose 101 H Calcium 9.8 Total Bilirubin 0.7 AST 58 H ALT 40 Alkaline Phosphatase 54 Troponin I High Sens 3.3 Total Protein 8.5 H Albumin 4.6 Globulin 3.9 Albumin/Globulin Ratio 1.2 Lipase 59 H - Rads (name of study) chest xray Radiology: Prelim report reviewed, See rad report PD MEDICAL DECISION MAKING - ED course Complexity details: reviewed results, re-evaluated patient, considered differential, d/w patient ED course: no concerning findings on tonight's testing including CXR, EKG, blood tests (including hs-cTn). reviewed results with patient. cause of symptoms not apparent at this time. Return precautions discussed, advised to follow up with primary care provider Departure - Departure Disposition: 01 Home, Self Care Clinical Impression: Chest pain Condition: Good Instructions: ED Chest Pain Atypical Unkn Cause Follow-Up: Jackelyn Duran MD [Primary Care Provider] - Comments: Your test results are without any concerning findings, which is reassuring but also means that the cause of your chest pain is not apparent at this time. Follow up with your primary care provider for reevaluation Discharge Date/Time: 05/21/22 22:57
[2022-05-21 21:04] LABS: BASOPHILS % (AUTO) 0.5 %; EOSINOPHILS # (AUTO) 0.1 10^3/uL (0.0-0.7); EOSINOPHILS % (AUTO) 1.1 %; HCT - HEMATOCRIT 43.6 % (42.0-52.0); HGB - HEMOGLOBIN 14.4 g/dL (14.0-18.0); LYMPHOCYTES # (AUTO) 3.1 10^3/uL (1.5-3.5); LYMPHOCYTES % (AUTO) 46.6 %; MEAN CORPUSCULAR HEMOGLOBIN 30.1 pg (27.0-31.0); MEAN CORPUSCULAR VOLUME 91.2 fL (80.0-94.0); MEAN PLATELET VOLUME 10.1 fL (7.4-11.4); MONOCYTES # (AUTO) 0.4 10^3/uL (0.0-1.0); MONOCYTES % (AUTO) 6.6 %; NEUTROPHILS % (AUTO) 44.9 %; PLT - PLATELET COUNT 247 10^3/uL (130-450); RED BLOOD COUNT 4.78 10^6/uL (4.70-6.10); RED CELL DISTRIBUTION WIDTH 11.9 % (12.0-15.0); WHITE BLOOD COUNT 6.6 x10^3/uL (4.8-10.8)
--- NOTE | 2022-05-21 21:06 | XRAY Report ---
PROCEDURE: Chest 1 View X-Ray INDICATIONS: Chest Pain TECHNIQUE: One view of the chest was acquired. COMPARISON: None. FINDINGS: Surgical changes and devices: None. Lungs and pleura: No pleural effusions or pneumothorax. Lungs are clear. Mediastinum: Mediastinal contours appear normal. Heart size is normal. Bones and chest wall: No suspicious bony lesions. Overlying soft tissues appear unremarkable. IMPRESSION: 1. No acute cardiopulmonary disease. Reviewed by: Frederick Barron MD on 05/21/2022 9:04 PM PDT Approved by: Frederick Barron MD on 05/21/2022 9:04 PM PDT Station ID: [id number]
[2022-05-21 21:22] LABS: ALBUMIN 4.6 g/dL (3.2-5.5); ALBUMIN/GLOBULIN RATIO 1.2 (1.0-2.2); BILIRUBIN,TOTAL 0.7 mg/dL (0.2-1.0); CALCIUM 9.8 mg/dL (8.5-10.3); CREATININE 1.1 mg/dL (0.6-1.2); POTASSIUM 3.6 mmol/L (3.5-5.0); TOTAL PROTEIN 8.5 g/dL (6.7-8.2)
[2022-05-21 22:58] VITALS: BP 120/73
== END 2022-05-21 22:57 | disposition home or self-care (01) ==
LOC: ED 20:32
DX: R07.9 Chest pain, unspecified (principal)
CPT/HCPCS: 36415; 80053; 83690; 84484; 85025; 93005; 99284

== ENCOUNTER 2024-08-12 11:46 | Outpatient (CLI) | payer OTHER ==
[2024-08-12 12:32] LABS: PROLACTIN 6.9 ng/mL
--- NOTE | 2024-08-12 18:52 | XRAY Report ---
PROCEDURE: Elbow 1-2V RT INDICATIONS: RIGHT ELBOW JOINT PAIN TECHNIQUE: 2 views of the elbow were acquired. COMPARISON: None. FINDINGS: Bones: No fractures or dislocations. No suspicious bony lesions. Soft tissues: No effusion. No suspicious soft tissue calcifications or masses. IMPRESSION: No acute fracture or dislocation of the right elbow. If there is persistent concern for underlying li gamentous injury, an MRI of the elbow without contrast would be recommended for further evaluation. Reviewed by: Papito Sarkar MD on 08/12/2024 6:17 PM PDT Approved by: Papito Sarkar MD on 08/12/2024 6:17 PM PDT Station ID: [id number]
[2024-08-13 08:10] LABS: ESTRADIOL 17.6 pg/mL (7.6-42.6); PROGESTERONE 0.4 ng/mL (0.0-0.5)
== END 2024-08-12 11:47 | disposition home or self-care (01) ==
LOC: LAB 11:46
PROVIDERS: ATTEND Nurse Practitioner Family
DX: N52.9 Male erectile dysfunction, unspecified (principal); R68.82 Decreased libido; M25.521 Pain in right elbow
CPT/HCPCS: 36415; 82670; 83001; 83002; 84144; 84146; 84402; 84403